=== PATIENT | female | born 1965 | race Caucasian/White ===

== ENCOUNTER → 2017-03-11 | Outpatient (CLI) | payer OTHER ==
--- NOTE | 2017-03-11 10:01 | WOMENS IMAGING REPORT ---
EXAM DESCRIPTION: U/S ABDOMEN LIMITED COMPLETED DATE/TIME: 03/11/2017 9:50 am REASON FOR STUDY: EPIGASTRIC PAIN; R10.13 R10.13 EPIGASTRIC PAIN COMPARISON: None. TECHNIQUE: Dynamic and static grayscale images acquired of the abdomen and recorded on PACS. Additio nal selected color Doppler and spectral images recorded. LIMITATIONS: None. FINDINGS: PANCREAS: The pancreatic tail could not be visualized due to overlying bowel gas. No mass lesions are identified in the pancreatic head or body. LIVER: A hyperechoic area is identified in the left lobe of the liver measuring 1.6 x 1.3 x 1.1 cm in diameters most consistent with an hemangioma. Other etiologies cannot be completely excluded howeve r and CT may be of value for further evaluation. LIVER VASCULATURE: Normal blood flow is identified in the portal vein. GALLBLADDER: No stones. Normal wall thickness. No pericholecystic fluid. Gallbladder was in contract ed state ULTRASOUND-DETECTED GUERRERO'S SIGN: Negative. INTRAHEPATIC DUCTS AND COMMON DUCT: CBD and intrahepatic ducts normal caliber. No filling defects. INFERIOR VENA CAVA: Normal flow. AORTA: No aneurysm. RIGHT KIDNEY: Normal size. Normal echogenicity. No solid or suspicious masses. No hydronephrosis. No calcifications. PERITONEAL AND RIGHT PLEURAL SPACE: No ascites or effusions. OTHER: No other significant findings. IMPRESSION: A hyperechoic area is identified in the left lobe the liver as noted above most consiste nt with an hemangioma. Other etiologies cannot be completely excluded however and CT may be of value for further evaluation. No other significant intra-abdominal abnormalities were identified. Other findings as noted above TECHNICAL DOCUMENTATION: JOB ID: [id number]- All Rights Reserved
== END ==
LOC: RAD 08:58
PROVIDERS: ATTEND Internal Medicine Gastroenterology
DX: R10.13 Epigastric pain (principal)
CPT/HCPCS: 76705